=== PATIENT | female | born 1950 | race Caucasian/White ===

== ENCOUNTER 2016-11-10 18:08 | Emergency (ER) | payer MEDICARE, OTHER ==
--- NOTE | 2016-11-10 19:43 | ER Document Report ---
ED Head/Face/Scalp Injury - General Chief Complaint: Head Injury with LOC Stated Complaint: FALL HEAD INJURY Time seen by provider: 18:55 Mode of Arrival: Medic Information source: Patient, Emergency Med Personnel, [facility] Records Notes: This 65-year-old female patient brought emergently by EMS after suffering a fall in her bathroom at home. She states she thinks she fell as she was getting up off the toilet, fell backwards and struck the back of her head on the floor. She thinks she may have been knocked unconscious. At this time she complains of some discomfort to the back of her head. She denies any neck pain. When asked about alcohol consumption, she states she drinks a little, occasionally. Her speech is slurred. There are no motor deficits. TRAVEL OUTSIDE OF THE [place] IN LAST 30 DAYS: No - Related Data Allergies/Adverse Reactions: No Known Allergies Allergy (Verified 08/26/15 10:49) Past Medical History - General Information source: Patient, Emergency Med Personnel, [facility] Records - Social History Smoking Status: Current Every Day Smoker Cigarette use (# per day): Yes Chew tobacco use (# tins/day): No Smoking Education Provided: No Frequency of alcohol use: Occasional Drug Abuse: None Lives with: Spouse/Significant other Family History: Reviewed & Not Pertinent - Past Medical History Cardiac Medical History: Reports: Hx Hypertension - Takes Coreg and lisinopril Denies: Hx Coronary Artery Disease, Hx Heart Attack, Hx Hypercholesterolemia Pulmonary Medical History: Reports: None EENT Medical History: Reports: None Neurological Medical History: Reports: None Endocrine Medical History: Reports: None Renal/ Medical History: Reports: None GI Medical History: Reports: None Musculoskeltal Medical History: Reports Hx Arthritis - GENERALIZED Skin Medical History: Reports None Psychiatric Medical History: Reports: None Infectious Medical History: Reports: None Past Surgical History: Reports: Hx Appendectomy, Hx Hysterectomy, Hx Orthopedic Surgery - foot / hand - Immunizations Hx Diphtheria, Pertussis, Tetanus Vaccination: Yes Review of Systems - Review of Systems Constitutional: No symptoms reported EENT: No symptoms reported Cardiovascular: No symptoms reported Respiratory: No symptoms reported Gastrointestinal: No symptoms reported Genitourinary: No symptoms reported Female Genitourinary: Post menopausal Musculoskeletal: No symptoms reported Skin: No symptoms reported Hematologic/Lymphatic: No symptoms reported Neurological/Psychological: No symptoms reported Physical Exam - Vital signs Vitals: Temp Pulse Resp BP Pulse Ox 97.5 F 72 16 177/102 H 98 11/10/16 19:12 11/10/16 19:12 11/10/16 19:12 11/10/16 19:12 11/10/16 19:12 Interpretation: Hypertensive - General General appearance: Alert In distress: None - HEENT Head: Normocephalic, Tenderness - There is tender soft tissue swelling in the left occipital region. There are no lacerations noted.. No: Atraumatic Eyes: Normal Extraocular movements intact: Yes Pupils: PERRL Nasal: Normal Mouth/Lips: Normal Neck: Normal, Supple - The patient has good range of motion to her neck, there is no pain with neck movement. There is no pain on palpation of the posterior cervical processes or the posterior cervical muscles. - Respiratory Respiratory status: No respiratory distress Breath sounds: Other - There are coarse breath sounds consistent with her smoking history, otherwise unremarkable thoracic exam. - Cardiovascular Rhythm: Regular Heart sounds: Normal auscultation Murmur: No - Abdominal Inspection: Normal Bowel sounds: Normal Tenderness: Nontender - Back Back: Normal, Nontender - Extremities General upper extremity: Normal inspection General lower extremity: Normal inspection - Neurological Neuro grossly intact: Yes - Psychological Associated symptoms: Other - Patient appears to be intoxicated. - Skin Skin Temperature: Warm Skin Moisture: Dry Skin Color: Normal Course - Re-evaluation Re-evalutation: 11/10/16 21:03 The patient's elevated blood pressure may be related to her alcohol intoxication. She does take medication for her blood pressure. 11/10/16 21:08 I reviewed the discharge diagnoses with the patient, she tried to say that her alcohol level was high because of the Flexeril she is taking. She is unable to agree that it is because of alcohol consumption. - Vital Signs Vital signs: Temp Pulse Resp BP Pulse Ox 97.5 F 72 16 177/102 H 98 11/10/16 19:12 11/10/16 19:12 11/10/16 19:12 11/10/16 19:12 11/10/16 19:12 - Laboratory Result Diagrams: 11/10/16 19:44 11/10/16 19:44 Laboratory results interpreted by me: 11/10/16 11/10/16 19:44 19:44 Sodium 121.0 L Chloride 86 L BUN 4 L Creatinine 0.47 L Creatine Kinase 155 H CK-MB (CK-2) 6.77 H - Diagnostic Test Radiology reviewed: Image reviewed, Reports reviewed - Left occipital scalp hematoma. Brain shows mild chronic atrophy and small vessel ischemic disease, no acute intracranial injury. - EKG Interpretation by Me EKG shows normal: Sinus rhythm, Intervals, ST-T Waves. abnormal: [place], QRS Complexes - Old anterior wall [place] Rate: Normal - 76 Rhythm: NSR [place]/QRS: Left axis deviation P Waves: LAE When compared to previous EKG there are: No significant change - Transfer of Care Care transferred to following provider: Dr. Lynn Notes: 11/10/16 21:00 Patient will be ready to discharge when a sober adult comes to take her home, or when she dwain up. Her alcohol level will approach 80 mg% about 11:30 PM this evening. Discharge - Discharge Clinical Impression: Elevated blood pressure reading Contusion of occipital region of scalp Qualifiers: Encounter type: initial encounter Qualified Code(s): S00.03XA - Contusion of scalp, initial encounter Fall Qualifiers: Encounter type: initial encounter Qualified Code(s): W19.XXXA - Unspecified fall, initial encounter Acute alcohol intoxication Qualifiers: Complication of substance-induced condition: with unspecified complication Qualified Code(s): F10.129 - Alcohol abuse with intoxication, unspecified Condition: Stable Disposition: HOME, SELF-CARE Additional Instructions: Acute Alcohol Intoxication: Your evaluation revealed very high levels of alcohol. You can from drinking a large amount of alcohol rapidly! Further, there's the risk of falls , traffic accidents, and fights. A high portion (about 50 percent) of the serious injuries seen in hospital emergency rooms are caused by alcohol. Alcohol overdosage is usually due to an underlying emotional or psychiatric problem. You may benefit from counselling. If "binge" drinking is an ongoing problem for you, or if you drink ANY AMOUNT of alcohol EVERY day, you most likely have a tendency to alcoholism. You should avoid alcohol totally. We can refer you for treatment. Persons with alcohol problems are often also prone to other addictions -- you should discuss any use of medications or drugs with the doctor. You should be watched at home for the next several hours by someone who has not been drinking. Get extra fluids for the next 24 hours. Call the doctor if there is repeated vomiting, increasing headache, decreasing level of alertness, or any other worsening. Contusion: Your injury has resulted in a contusion -- a crushing of the deep tissues. No injury to important structures was detected during the physician's exam. Contusions vary in the amount of pain they cause, and in the length of time required for healing. Typically, the area will become bruised, and will remain painful to touch for two or three weeks. However, most patients are back to working and playing within a few days. After the initial period of rest and cold-packs, your symptoms (together with the doctor's recommendations) will determine how rapidly you can get back to full activity. Usually this means "do what feels okay, but don't do things that hurt." If re-examination was recommended, it's important to follow up as instructed. Call the doctor or return any time if pain increases, if swelling becomes severe, if you develop numbness or weakness in an injured extremity, or if any other alarming symptoms occur. Head Injury Precautions: At this point, there is no evidence that your head injury is serious. Observation is necessary, however. Take only clear liquids for the first few hours, unless told otherwise by the doctor. If no pain medication was prescribed, you may take acetaminophen according to the directions on the bottle. Do not take any medication that may alter your level of alertness (unless you've discussed it with the doctor first) . Limit activity for the first 24 hours. Bed rest is best. During the first 24 hours, check to see approximately every two to three hours that the patient is easily arousable, responds normally, and can perform common tasks such as walking without difficulty. Contact your doctor or go to the hospital if any of the following things occur: Persistent vomiting, difficulty in arousing the patient, worsening or continued headache, or failure to improve as expected. Head injuries can cause symptoms that persist for a few days or even a few weeks. USE ICE-PACKS TO REDUCE THE SWELLING ON THE BACK OF YOUR HEAD. DRINK PLENTY OF FLUIDS TODAY. STOP DRINKING ALCOHOL. BE SURE TO TAKE YOUR BLOOD PRESSURE MEDICATION PRESCRIBED BY YOUR DOCTOR. FOLLOW UP WITH YOUR DOCTOR TOMORROW FOR RECHECK. RETURN TO THE EMERGENCY ROOM IF ANY NEW OR WORSENING SYMPTOMS. Referrals: KULDIP ZACARIAS DO [Primary Care Provider] - Follow up tomorrow
[2016-11-10 19:57] LABS: ABSOLUTE BASOPHILS # (AUTO) 0.1 10^3/uL (0.0-0.2); ABSOLUTE EOSINOPHILS # (AUTO) 0.4 10^3/uL (0.0-0.6); ABSOLUTE LYMPHOCYTES (AUTO) 1.2 10^3/uL (0.5-4.7); ABSOLUTE MONOCYTES (AUTO) 0.7 10^3/uL (0.1-1.4); ABSOLUTE NEUT (AUTO) 3.6 10^3/uL (1.7-8.2); BASOPHILS % (AUTO) 1.4 % (0-2); HEMATOCRIT 42.3 % (36.0-47.0); HEMOGLOBIN 14.2 g/dL (12.0-15.5); HGB HCT DIFFERENCE 0.3; LYMPHOCYTES % (AUTO) 20.8 % (13-45); MEAN CORPUSCULAR HEMOGLOBIN 30.5 pg (27.0-33.4); MEAN CORPUSCULAR HGB CONC 33.6 g/dL (32.0-36.0); MEAN CORPUSCULAR VOLUME 91 fl (80-97); MONOCYTES % (AUTO) 11.2 % (3-13); RED BLOOD COUNT 4.65 10^6/uL (3.72-5.28); RED CELL DISTRIBUTION WIDTH 13.4 % (11.5-14.0); SEGMENTED NEUTROPHILS % (AUTO) 60.6 % (42-78)
[2016-11-10 20:00] LABS: PROTHROMBIN TIME 12.2 SEC (11.4-15.4)
[2016-11-10 20:31] LABS: ALANINE AMINOTRANSFERASE 23 U/L (9-52); ALBUMIN 3.9 g/dL (3.5-5.0); ALCOHOL 174 mg/dL (NONE DETECTED); ALKALINE PHOSPHATASE 106 U/L (38-126); ANION GAP 12 (5-19); ASPARTATE AMINO TRANSFERASE 30 U/L (14-36); BILIRUBIN,TOTAL 0.3 mg/dL (0.2-1.3); BLOOD UREA NITROGEN 4 mg/dL (7-20); CALCIUM 8.8 mg/dL (8.4-10.2); CARBON DIOXIDE 23 mmol/L (22-30); CHLORIDE 86 mmol/L (98-107); CREATINE KINASE 155 U/L (30-135); CREATININE RESULT 0.47 mg/dL (0.52-1.25); GLUCOSE 92 mg/dL (75-110); POTASSIUM 4.4 mmol/L (3.6-5.0); TOTAL PROTEIN 6.5 g/dL (6.3-8.2)
[2016-11-10 20:39] LABS: CREATINE KINASE MB 6.77 ng/mL (<4.55)
[2016-11-10 20:40] LABS: TROPONIN I < 0.012 ng/mL
[2016-11-10 22:07] VITALS: BP 156/81
--- NOTE | 2016-11-11 13:43 | EKG REPORT ---
SEVERITY:- ABNORMAL ECG - SINUS RHYTHM PROBABLE LEFT ATRIAL ABNORMALITY LEFT AXIS DEVIATION LEFT VENTRICULAR HYPERTROPHY ANTERIOR INFARCT, AGE INDETERMINATE : Confirmed by: Hermila Molina MD 11-Nov-2016 13:42:18
== END 2016-11-10 22:10 | disposition home or self-care (01) ==
LOC: ER 18:08
DX: S09.90XA Unspecified injury of head, initial encounter (principal); F10.129 Alcohol abuse with intoxication, unspecified; F17.210 Nicotine dependence, cigarettes, uncomplicated; I10 Essential (primary) hypertension; W18.12XA Fall from or off toilet with subsequent striking against object, initial encounter; Y92.002 Bathroom of unspecified non-institutional (private) residence as the place of occurrence of the external cause; Z90.710 Acquired absence of both cervix and uterus; Z78.0 Asymptomatic menopausal state
CPT/HCPCS: 36415; 70450; 80053; 80307; 82550; 82553; 84484; 85025; 85610; 93005; 93010; 99284

== ENCOUNTER 2016-12-01 16:38 | Emergency (ER) | payer MEDICARE ==
--- NOTE | 2016-12-01 17:24 | ER Document Report ---
ED Medical Screen (RME) - General Stated Complaint: BACK PAIN Time seen by provider: 17:19 Mode of Arrival: Wheelchair Information source: Patient TRAVEL OUTSIDE OF THE [place] IN LAST 30 DAYS: No - HPI Patient complains to provider of: BACK PAIN Onset: Other - CHRONIC, WORSE LAST COUPLE OF WEEKS AFTER FALLING Onset/Duration: Worse Context: RADIATES DOWN BOTH LEGS, WORSE ON LEFT LEG. HX BULGING AND HERNIATED DISCS Quality of pain: Sharp, Stabbing Severity: Moderate Pain Level: 4 Associated Symptoms: None Exacerbated by: Movement, Walking Relieved by: Denies Similar symptoms previously: Yes Recently seen / treated by doctor: No Notes: 12/01/16 17:23 SAID DOCTOR TOLD HER LOW SODIUM CAUSED HER TO FALL IN PAST. PT STATES SHE FEELS FATIGUED SINCE FALLING. - Related Data Smoking: Cigarettes Frequency of alcohol use: Occasional Drug Abuse: None Pertinent History: CHRONIC BACK PAIN - HAD APPT WITH PAIN MGMT THIS AM BUT CAME HERE INSTEAD. HAS HAD SPINAL INJECTIONS IN PAST. LAST INJECTION WAS ABOUT 6 YEARS AGO. HTN Allergies/Adverse Reactions: No Known Allergies Allergy (Verified 12/01/16 17:08) Past Medical History - Past Medical History Cardiac Medical History: Reports: Hx Hypertension - Takes Coreg and lisinopril Denies: Hx Coronary Artery Disease, Hx Heart Attack, Hx Hypercholesterolemia Pulmonary Medical History: Denies: Hx Asthma, Hx Bronchitis, Hx COPD, Hx Pneumonia Neurological Medical History: Denies: Hx Cerebrovascular Accident, Hx Seizures GI Medical History: Denies: Hx Hepatitis, Hx Hiatal Hernia, Hx Ulcer Musculoskeltal Medical History: Reports Hx Arthritis - GENERALIZED Infectious Medical History: Denies: Hx Hepatitis Past Surgical History: Reports: Hx Appendectomy, Hx Genitourinary Surgery, Hx Hysterectomy, Hx Orthopedic Surgery - foot / hand. Denies: Hx Mastectomy, Hx Open Heart Surgery, Hx Pacemaker - Immunizations Hx Diphtheria, Pertussis, Tetanus Vaccination: Yes Physical Exam - Vital signs Vitals: Temp Pulse Resp BP Pulse Ox 98.8 F 91 16 172/91 H 98 12/01/16 16:48 12/01/16 16:48 12/01/16 16:48 12/01/16 16:48 12/01/16 16:48 Course - Vital Signs Vital signs: Temp Pulse Resp BP Pulse Ox 98.8 F 91 16 172/91 H 98 12/01/16 16:48 12/01/16 16:48 12/01/16 16:48 12/01/16 16:48 12/01/16 16:48
[2016-12-01] MEDS ORDERED: OXYCODONE-ACETAMINOPHEN 5-325 MG TABLET PO ONE (17:26)
--- NOTE | 2016-12-01 20:30 | ER Document Report ---
ED General - General Chief Complaint: Low Back Pain Stated Complaint: BACK PAIN Mode of Arrival: Wheelchair Notes: Patient is a 65-year-old female who presents with chronic back pain. States that she used to be on chronic pain management but has not seen her pain management doctor for some time. States that she has had a dull, throbbing, constant pain in her bilateral low back worse in the left and the right last several days. States she's been trying [id number] pain medications without any relief of her symptoms. Nothing worsens the symptoms other than moving. Denies any urinary incontinence or retention, weakness, numbness, difficulty ambulate in, fever, or IV drug use. She has not seen her primary care physician regarding today's concerns. TRAVEL OUTSIDE OF THE [place] IN LAST 30 DAYS: No - Related Data Allergies/Adverse Reactions: No Known Allergies Allergy (Verified 12/01/16 17:08) Past Medical History - General Information source: Patient - Social History Smoking Status: Current Every Day Smoker Chew tobacco use (# tins/day): Yes Frequency of alcohol use: Occasional Drug Abuse: None Lives with: Alone Family History: Reviewed & Not Pertinent Patient has suicidal ideation: No Patient has homicidal ideation: No - Past Medical History Cardiac Medical History: Reports: Hx Hypertension - Takes Coreg and lisinopril Denies: Hx Coronary Artery Disease, Hx Heart Attack, Hx Hypercholesterolemia Pulmonary Medical History: Denies: Hx Asthma, Hx Bronchitis, Hx COPD, Hx Pneumonia Neurological Medical History: Denies: Hx Cerebrovascular Accident, Hx Seizures Renal/ Medical History: Denies: Hx Peritoneal Dialysis GI Medical History: Denies: Hx Hepatitis, Hx Hiatal Hernia, Hx Ulcer Musculoskeltal Medical History: Reports Hx Arthritis - GENERALIZED Infectious Medical History: Denies: Hx Hepatitis Past Surgical History: Reports: Hx Appendectomy, Hx Genitourinary Surgery, Hx Hysterectomy, Hx Orthopedic Surgery - foot / hand. Denies: Hx Mastectomy, Hx Open Heart Surgery, Hx Pacemaker - Immunizations Hx Diphtheria, Pertussis, Tetanus Vaccination: Yes Review of Systems - Review of Systems Notes: Constitutional: Negative for fever. HENT: Negative for sore throat. Eyes: Negative for visual changes. Cardiovascular: Negative for chest pain. Respiratory: Negative for shortness of breath. Gastrointestinal: Negative for abdominal pain, vomiting or diarrhea. Genitourinary: Negative for dysuria. Musculoskeletal: Positive for back pain. Skin: Negative for rash. Neurological: Negative for headaches, weakness or numbness. 10 point ROS negative except as marked above and in HPI. Physical Exam - Vital signs Vitals: Temp Pulse Resp BP Pulse Ox 98.8 F 91 16 172/91 H 98 12/01/16 16:48 12/01/16 16:48 12/01/16 16:48 12/01/16 16:48 12/01/16 16:48 Interpretation: Hypertensive Notes: PHYSICAL EXAMINATION: GENERAL: Well-appearing, well-nourished and in no acute distress. HEAD: Atraumatic, normocephalic. EYES: Pupils equal round and reactive to light, extraocular movements intact, sclera anicteric, conjunctiva are normal. ENT: nares patent, oropharynx clear without exudates. Moist mucous membranes. NECK: Normal range of motion, supple without lymphadenopathy LUNGS: Breath sounds clear to auscultation bilaterally and equal. No wheezes rales or rhonchi. HEART: Regular rate and rhythm without murmurs ABDOMEN: Soft, nontender, normoactive bowel sounds. No guarding, no rebound. No masses appreciated. EXTREMITIES: Normal range of motion, no pitting or edema. No cyanosis. Back: No midline spinal tenderness or step-offs or deformities. Pain on palpation of the bilateral perilumbar spine. NEUROLOGICAL: 5 out of 5 strength both distally and proximally bilateral lower extremities. 2+ patellar reflexes bilaterally. No clonus. Sensation grossly intact in the bilateral lower extremities. Patient is able to ambulate without difficulty. PSYCH: Normal mood, normal affect. SKIN: Warm, Dry, normal turgor, no rashes or lesions noted. Course - Re-evaluation Re-evalutation: 12/01/16 20:29 Presentation of a well appearing patient complaining of acute on chronic back pain. No rapid progression of symptoms, systemic symptoms including fevers, chills, weight loss, history of recent bacterial infection, bilateral symptoms, numbness, weakness, difficulty walking, urinary retention or bowel incontinence , personal history of cancer, immunosuppression, diabetes, known AAA, or history of IV drug use. Exam is without point tenderness over vertebral bodies , pulsatile abdominal mass, and patient has symmetric and intact lower extremity strength, sensation, and reflexes without clonus. 2+ symmetric medial malleolar and dorsalis pedis pulses Based on history and physical, I have a very low suspicion of a concerning etiology of pain including epidural compression syndrome, spinal infection, transverse myelitis, malignancy, abdominal aortic aneurysm, renal colic, acute lower extremity claudication, neurogenic claudication, ankylosing spondylitis, or other intra-abdominal process. Due to absence of concerning risk factors in history and physical as well as absence of rapidly progressive, severe, or bilateral symptoms, will defer imaging at this point. Plan to manage conservatively with outpatient analgesia, analgesia, and physical therapy. - Acetaminophen 650 q 4 + ibuprofen 600 q 6 - Continue normal daily activities as tolerated by pain - Provide with standard musculoskeletal back pain exercise instructions - Instruct to follow up with primary care provider if symptoms not improving - Provide careful return precautions and concerning symptoms to watch for. - Vital Signs Vital signs: Temp Pulse Resp BP Pulse Ox 97.8 F 88 18 164/90 H 98 12/01/16 20:46 12/01/16 20:46 12/01/16 20:46 12/01/16 20:46 12/01/16 20:46 Discharge - Discharge Clinical Impression: Chronic low back pain Qualifiers: Back pain laterality: bilateral Sciatica presence: with sciatica Sciatica laterality: bilateral sciatica Qualified Code(s): M54.42 - Lumbago with sciatica , left side Condition: Good Disposition: HOME, SELF-CARE Additional Instructions: You have been seen in the Emergency Department (ED) today for back pain. Your workup and exam have not shown any acute abnormalities and you are likely suffering from muscle strain or possible problems with your discs, but there is no treatment that will fix your symptoms at this time. Please take the naproxen that has been prescribed as directed. You should also purchase a local lidocaine cream such as "aspercreme with lidocaine" and use per bottle instructions to the affected area. Apply heat to the area as often as you are able. Continue to keep active and avoid prolonged periods of bed rest. Please follow up with your doctor as soon as possible regarding today's ED visit and your back pain. Return to the ED for worsening back pain, fever, weakness or numbness of either leg, or if you develop either (1) an inability to urinate or have bowel movements, or (2) loss of your ability to control your bathroom functions (if you start having "accidents"), or if you develop other new symptoms that concern you.concern you. Prescriptions: Naproxen 500 mg PO BID #60 tablet Referrals: KULDIP ZACARIAS DO [Primary Care Provider] - Follow up as needed
[2016-12-01] MEDS ORDERED: HYDROCODONE/ACETAMINOPHEN 5-325 MG 6 TAB/DSPK PO PRN (20:38)
[2016-12-01 20:48] VITALS: BP 164/90
== END 2016-12-01 20:46 | disposition home or self-care (01) ==
LOC: ER 16:38
DX: G89.29 Other chronic pain (principal); M54.41 Lumbago with sciatica, right side; M54.42 Lumbago with sciatica, left side; I10 Essential (primary) hypertension; F17.200 Nicotine dependence, unspecified, uncomplicated
CPT/HCPCS: 99283; A9270 ×2

== ENCOUNTER 2017-02-20 14:29 | Inpatient (IN) | payer MEDICARE ==
--- NOTE | 2017-02-20 15:07 | ER Document Report ---
ED General - General Chief Complaint: Weakness Stated Complaint: POSSIBLE STROKE Mode of Arrival: Medic Information source: Patient, Emergency Med Personnel Notes: This is a 66-year-old female who presents via EMS for left-sided weakness. Patient states that she was fine earlier today but that just after noon today at about 1210 she sat down to watch TV and noticed that she suddenly could not move her left upper extremity. She also states that left arm was numb. A few minutes later she noticed weakness and numbness to her left leg as well. She remained alert through the episode. Upon EMS arrival, EMS states that she was weak to her left side but she was alert and oriented. She had no facial droop upon their arrival. She had no dysarthria per EMS. During initial EMS evaluation, prior to transport, her symptoms completely resolved. She was transported to ER as stroke alert. She is now back to baseline and she has no complaints. Of note, she did have 2 beers today. She has chronic back pain and was previously in pain management, but now states she does not take narcotics. No prior history of CVA or TIA. TRAVEL OUTSIDE OF THE [place] IN LAST 30 DAYS: No - Related Data Allergies/Adverse Reactions: No Known Allergies Allergy (Verified 12/01/16 17:08) Past Medical History - General Information source: Patient - Social History Smoking Status: Current Every Day Smoker Frequency of alcohol use: Occasional Drug Abuse: None Lives with: Spouse/Significant other Family History: Reviewed & Not Pertinent - Past Medical History Cardiac Medical History: Reports: Hx Hypertension - Takes Coreg and lisinopril Denies: Hx Coronary Artery Disease, Hx Heart Attack, Hx Hypercholesterolemia Pulmonary Medical History: Denies: Hx Asthma, Hx Bronchitis, Hx COPD, Hx Pneumonia Neurological Medical History: Denies: Hx Cerebrovascular Accident, Hx Seizures Renal/ Medical History: Denies: Hx Peritoneal Dialysis GI Medical History: Denies: Hx Hepatitis, Hx Hiatal Hernia, Hx Ulcer Musculoskeltal Medical History: Reports Hx Arthritis - GENERALIZED Infectious Medical History: Denies: Hx Hepatitis Past Surgical History: Reports: Hx Appendectomy, Hx Genitourinary Surgery, Hx Hysterectomy, Hx Orthopedic Surgery - foot / hand. Denies: Hx Mastectomy, Hx Open Heart Surgery, Hx Pacemaker - Immunizations Hx Diphtheria, Pertussis, Tetanus Vaccination: Yes Physical Exam - Vital signs Vitals: Resp Pulse Ox 17 96 02/20/17 14:43 02/20/17 14:43 - Notes Notes: PHYSICAL EXAMINATION: GENERAL: Well-appearing thin elderly female, pleasant and conversant and in no acute distress. Some smell of alcohol HEAD: Atraumatic, normocephalic. EYES: Pupils equal round and reactive to light, extraocular movements intact, sclera anicteric, conjunctiva are normal. ENT: nares patent, oropharynx clear without exudates. Moist mucous membranes. NECK: Normal range of motion, supple without lymphadenopathy LUNGS: Breath sounds clear to auscultation bilaterally and equal. No wheezes rales or rhonchi. HEART: Regular rate and rhythm without murmurs ABDOMEN: Soft, nontender, normoactive bowel sounds. No guarding, no rebound. No masses appreciated. EXTREMITIES: Normal range of motion, no pitting or edema. No cyanosis. NEUROLOGICAL: Cranial nerves grossly intact. No facial asymmetry. Normal speech. Motor strength +5/5. Sensation intact. Negative [id number]. No drift. PSYCH: Normal mood, normal affect. SKIN: Warm, Dry. Dry crusted rash to anterior LLE/foot consistent with eczema ( chronic per patient) Course - Re-evaluation Re-evalutation: 02/20/17 15:35 Patient presented very close to the 3 hour debbie from her last known normal, however her symptoms have significantly improved and almost completely resolved at this time. NIH score - 1 (some drift to LUE). At this time she is not a candidate for thrombolytic therapy. Her head CT is reviewed as negative. She' s been given aspirin. 02/20/17 17:26 Patient reexamined. She states that she has intermittent episodes of worsening weakness in her left upper extremity and then her strength will improve again. At this time she is able to hold her left arm up against gravity but not for the full 10 seconds. Her sensation is intact. I discussed concern for TIA versus CVA and she will be admitted today. She has received aspirin. Discussed with hospitalist who will admit. - Vital Signs Vital signs: Temp Pulse Resp BP Pulse Ox 98.8 F 79 20 183/97 H 97 02/21/17 07:21 02/21/17 07:21 02/21/17 07:21 02/21/17 07:21 02/21/17 07:21 - Laboratory Result Diagrams: 02/20/17 15:33 02/21/17 04:17 Laboratory results interpreted by me: 02/20/17 02/20/17 15:33 15:33 Sodium 126.7 L Chloride 91 L Creatinine 0.47 L Urine Blood MODERATE H hyponatremia is chronic and appears to be at pateint's baseline - Diagnostic Test Radiology reviewed: Reports reviewed - CT head: negative CXR: no acute process - EKG Interpretation by Me Additional EKG results interpreted by me: 02/20/17 17:31 EKG at 1452 demonstrates normal sinus rhythm with a rate of 75. Precordial Q waves are noted. There is no ST segment elevation or depression. No significant change from previous EKG. Discharge - Discharge Clinical Impression: Accelerated hypertension, Alcohol abuse, Chronic hyponatremia CVA (cerebral vascular accident) Qualifiers: CVA mechanism: unspecified Qualified Code(s): I63.9 - Cerebral infarction, unspecified Condition: Stable Disposition: ADMITTED OBSERVATION Admitting Provider: Hospitalist - Dr. Mahoney Unit Admitted: Telemetry
[2017-02-20] MEDS ORDERED: ASPIRIN 81 MG TABLET, CHEWABLE PO ONE (15:08)
[2017-02-20 15:49] LABS: PROTHROMBIN TIME 12.6 SEC (11.4-15.4)
[2017-02-20 15:50] LABS: PARTIAL THROMBOPLASTIN TIME 32.1 SEC (23.5-35.8)
[2017-02-20 15:53] LABS: ABSOLUTE BASOPHILS # (AUTO) 0.1 10^3/uL (0.0-0.2); ABSOLUTE EOSINOPHILS # (AUTO) 0.1 10^3/uL (0.0-0.6); ABSOLUTE LYMPHOCYTES (AUTO) 1.2 10^3/uL (0.5-4.7); ABSOLUTE MONOCYTES (AUTO) 0.8 10^3/uL (0.1-1.4); EOSINOPHILS % (AUTO) 2.3 % (0-6); HEMATOCRIT 37.5 % (36.0-47.0); HGB HCT DIFFERENCE 1.5; LYMPHOCYTES % (AUTO) 18.8 % (13-45); MEAN CORPUSCULAR HEMOGLOBIN 31.6 pg (27.0-33.4); MEAN CORPUSCULAR HGB CONC 34.7 g/dL (32.0-36.0); MEAN CORPUSCULAR VOLUME 91 fl (80-97); MONOCYTES % (AUTO) 12.7 % (3-13); RED BLOOD COUNT 4.12 10^6/uL (3.72-5.28); SEGMENTED NEUTROPHILS % (AUTO) 64.2 % (42-78); WHITE BLOOD COUNT 6.2 10^3/uL (4.0-10.5)
[2017-02-20 16:18] LABS: ALANINE AMINOTRANSFERASE 19 U/L (9-52); ALCOHOL 46 mg/dL (NONE DETECTED); ALKALINE PHOSPHATASE 84 U/L (38-126); ANION GAP 11 (5-19); ASPARTATE AMINO TRANSFERASE 22 U/L (14-36); BILIRUBIN,DIRECT 0.2 mg/dL (0.0-0.4); BILIRUBIN,TOTAL 0.4 mg/dL (0.2-1.3); BLOOD UREA NITROGEN 7 mg/dL (7-20); CALCIUM 9.2 mg/dL (8.4-10.2); CARBON DIOXIDE 25 mmol/L (22-30); CHLORIDE 91 mmol/L (98-107); CREATINE KINASE 124 U/L (30-135); CREATININE RESULT 0.47 mg/dL (0.52-1.25); GLUCOSE 83 mg/dL (75-110); POTASSIUM 4.5 mmol/L (3.6-5.0); SODIUM 126.7 mmol/L (137-145); TOTAL PROTEIN 6.3 g/dL (6.3-8.2)
[2017-02-20 16:38] LABS: APPEARANCE,URINE CLEAR; BILIRUBIN,URINE NEGATIVE (NEGATIVE); CREATINE KINASE MB 3.49 ng/mL (<4.55); GLUCOSE, URINE NEGATIVE (NEGATIVE); KETONES,URINE NEGATIVE (NEGATIVE); LEUKOCYTE ESTERASE,URINE NEGATIVE (NEGATIVE); NITRITE,URINE NEGATIVE (NEGATIVE); PROTEIN,URINE NEGATIVE (NEGATIVE); URINE SPECIFIC GRAVITY 1.004; UROBILINOGEN,URINE NEGATIVE mg/dL (<2.0)
[2017-02-20 16:39] LABS: TROPONIN I < 0.012 ng/mL
[2017-02-20 16:56] LABS: URINE BARBITURATES SCREEN NEGATIVE; URINE METHADONE SCREEN NEGATIVE; URINE OPIATES LOW NEGATIVE; URINE PHENCYCLIDINE SCREEN NEGATIVE
[2017-02-20] MEDS ORDERED: ONDANSETRON HCL INJ/PF 4 MG/2 ML SDV IV PRN (18:26)
[2017-02-20] MEDS ORDERED: NORMAL SALINE 1000 ML 1,000 ML IV PRN (18:26)
[2017-02-20] MEDS ORDERED: ACETAMINOPHEN 325 MG TABLET PO PRN (18:26)
[2017-02-20] MEDS ORDERED: DOCUSATE SODIUM 100 MG CAPSULE PO PRN (18:26)
[2017-02-20] MEDS ORDERED: NORMAL SALINE 1000 ML 1,000 ML with THIAMINE HCL 100 MG, MVI, ADULT NO.1 WITH VIT K 10 ... IV PRN ×4 (18:38)
--- NOTE | 2017-02-20 18:51 | PDOC H&P ---
History of Present Illness Admission Date/PCP: 02/20/17 17:55 JOHN HANNA MD Patient complains of: Left-sided weakness History of Present Illness: GILMA SCHWAB is a 66 year old female, with chronic left lower extremity weakness and left upper extremity weakness that she sustained from an injury from a ladder fall, presents to the hospital with left-sided weakness. Patient has chronic left upper extremity weakness due to prior injury and likewise has chronic back pain from degenerative disc disease with left-sided weakness. Patient drinks alcohol moderately. Patient was doing housework and laundry decided to sleep and rest laying on her left side and when she woke up she felt numb and tingling sensation in the left upper extremity and weakness. Patient tried to move and noted some weakness in the left lower extremity as well. This will last for only about 5-10 seconds and resolve. The ambulance was called and her symptoms resolved she was brought to the emergency room for evaluation reportedly had another episode. Patient admits having symptoms on and off. No dysphagia or choking sensation nor slurring of speech. Initial CT scan was negative. Alcohol level is 46. The patient was then referred for admission for possible stroke. Past Medical History Past Medical History: Medication reconciliation pending verification from the patient's pharmacist. Cardiac Medical History: Reports: Hypertension - Takes Coreg and lisinopril Denies: Coronary Artery Disease, Myocardial Infarction, Hyperlipidema Pulmonary Medical History: Denies: Asthma, Bronchitis, Chronic Obstructive Pulmonary Disease (COPD), Pneumonia Neurological Medical History: Denies: Seizures GI Medical History: Denies: Hepatitis, Hiatal Hernia Musculoskeltal Medical History: Reports: Arthritis - GENERALIZED, Other - Chronic back pain Psychiatric Medical History: Reports: Tobacco Dependency, Other - Alcohol abuse Hematology: Denies: Anemia, Sickle Cell Disease Past Surgical History Past Surgical History: Reports: Appendectomy, Hysterectomy, Orthopedic Surgery - foot / hand, left upper extremity Denies: Amputation, Mastectomy, Pacemaker Social History Information Source: Patient Lives with: Spouse/Significant other Smoking Status: Current Every Day Smoker Cigarettes Packs Per Day: 1 Frequency of Alcohol Use: Heavy - More on the moderate Hx Recreational Drug Use: No Drugs: None Family History Family History: None Parental Family History Reviewed: Yes Children Family History Reviewed: Yes Sibling(s) Family History Reviewed.: Yes Medication/Allergy Home Medications: Calcium Carbonate [Calcium] 4 tab PO DAILY 07/31/16 Duloxetine HCl [Cymbalta] 60 mg PO DAILY 07/31/16 Lisinopril 40 mg PO DAILY 07/31/16 Vitamin D3/Vitamin K2 [D3 + K2 Dots 1,000 Units Tab] 1 tab PO DAILY 07/31/16 Naproxen 500 mg PO BID #60 tablet 12/01/16 Allergies/Adverse Reactions: No Known Allergies Allergy (Verified 12/01/16 17:08) Review of Systems Constitutional: ABSENT: chills, fever(s), headache(s), weight gain, weight loss Eyes: ABSENT: visual disturbances Ears: ABSENT: hearing changes Nose, Mouth, and Throat: ABSENT: mouth pain, sore throat, vertigo Cardiovascular: ABSENT: chest pain, dyspnea on exertion, edema, orthropnea, palpitations Respiratory: ABSENT: cough, dyspnea, hemoptysis Gastrointestinal: ABSENT: abdominal pain, constipation, diarrhea, dysphagia, hematemesis, hematochezia, melena, nausea, vomiting Genitourinary: ABSENT: difficulty urinating, dysuria, hematuria Musculoskeletal: ABSENT: joint swelling Integumentary: ABSENT: rash, wounds Neurological: PRESENT: focal weakness - Chronic over on the the left upper and left lower extremity from prior accident. ABSENT: abnormal gait, abnormal speech, confusion, dizziness, syncope Psychiatric: ABSENT: anxiety, depression, homidical ideation, suicidal ideation Endocrine: ABSENT: cold intolerance, heat intolerance, polydipsia, polyuria Hematologic/Lymphatic: ABSENT: easy bleeding, easy bruising Physical Exam Vital Signs: Temp Pulse Resp BP Pulse Ox 73 14 169/90 H 96 02/20/17 17:32 02/20/17 17:32 02/20/17 17:32 02/20/17 17:32 General appearance: PRESENT: no acute distress, cooperative, thin Head exam: PRESENT: atraumatic, normocephalic Eye exam: PRESENT: conjunctiva pink, EOMI, PERRLA. ABSENT: scleral icterus Ear exam: PRESENT: normal external ear exam. ABSENT: drainage Mouth exam: PRESENT: moist, neck supple, tongue midline Throat exam: ABSENT: post pharyngeal erythema, tonsillar erythema Neck exam: ABSENT: carotid bruit, JVD, lymphadenopathy, thyromegaly Respiratory exam: PRESENT: clear to auscultation mindy. ABSENT: rales, rhonchi, wheezes Cardiovascular exam: PRESENT: RRR, +S1, +S2. ABSENT: diastolic murmur, gallop, rubs, systolic murmur Pulses: PRESENT: normal dorsalis pedis pul Vascular exam: PRESENT: normal capillary refill GI/Abdominal exam: PRESENT: normal bowel sounds, soft. ABSENT: distended, guarding, mass, organolmegaly, rebound, tenderness Rectal exam: PRESENT: deferred Extremities exam: PRESENT: full ROM. ABSENT: calf tenderness, clubbing, pedal edema Neurological exam: PRESENT: alert, awake, oriented to person, oriented to place , oriented to time, oriented to situation, other - Speech is fluent, no facial asymmetry, extraocular muscle movements are intact, tongue is midline, ovula is midline. Manual muscle testing 4 minus over 5 on the left upper and left lower extremity, 4+ over 5 right upper and right lower extremity. Psychiatric exam: PRESENT: appropriate affect, normal mood. ABSENT: homicidal ideation, suicidal ideation Skin exam: PRESENT: dry, intact, warm. ABSENT: cyanosis, rash Results Impressions: Chest X-Ray 02/20/17 14:32 IMPRESSION: NO ACUTE RADIOGRAPHIC FINDING IN THE CHEST. Head CT 02/20/17 14:32 IMPRESSION: CHRONIC CHANGES OF ATROPHY AND MICROVASCULAR ISCHEMIA. NO ACUTE PROCESS. Assessment & Plan - Diagnosis (1) Left-sided weakness Is this a current diagnosis for this admission?: Yes (2) Accelerated hypertension Is this a current diagnosis for this admission?: Yes (3) Alcohol abuse Is this a current diagnosis for this admission?: Yes (4) Chronic hyponatremia Is this a current diagnosis for this admission?: Yes (5) Chronic back pain Qualifiers: Back pain location: back pain in unspecified location Back pain laterality: unspecified Qualified Code(s): M54.9 - Dorsalgia, unspecified ; G89.29 - Other chronic pain Is this a current diagnosis for this admission?: Yes - Time Time Spent: 30 to 50 Minutes - Plan Summary Plan Summary: Patient will be admitted to observation. We will obtain MRI of the brain, carotid Doppler, 2-D echocardiogram. I will put the patient on aspirin. DVT prophylaxis with Lovenox will be placed. Supplemental oxygen will be given and oxygen protocol will be done. As needed hydralazine will be placed for systolic blood pressure greater than or equal to 180. I will give normal saline , supplemental thiamine folic acid and multivitamin. Further testing depends on initial evaluations OUTLINED ABOVE.
[2017-02-20] MEDS ORDERED: NORMAL SALINE 1000 ML 1,000 ML IV ONE (21:47)
[2017-02-20] MEDS: ATORVASTATIN CALCIUM 10 MG TABLET PO SCH (21:56)
--- NOTE | 2017-02-20 22:12 | XCELERA REPORT ---
[address] [address] Transthoracic Echocardiogram Report Name: GILMA SCHWAB Age: 66 yrs Gender: Female : 1950 Patient Status: Inpatient Patient Location: \S\10\S\A Study Date: 02/20/2017 07:35 PM Height: 63 in Weight: 125 lb BSA: 1.6 m2 Procedure: A complete two-dimensional transthoracic echocardiogram was performed (2D, M-mode, spectral and color flow Doppler). The study was technically difficult with many images being suboptimal in quality. Reason For Study: stroke, hypertension Ordering Physician: ASHER LAYTON Performed By: Darian Naidu Interpretation Summary The study was technically difficult with many images being suboptimal in quality. The left ventricular ejection fraction is within normal limits. There is mild concentric left ventricular hypertrophy. Doppler measurements suggest pseudonormalized left ventricular relaxation, which is associated with grade II/IV or mild to moderate diastolic dysfunction The left ventricle is grossly normal size. Wall motion cannot be accurately commented on, but no definite regional wall motion abnormalities noted. The right ventricle is grossly normal size. The right ventricular systolic function is normal. The right atrium is normal in size Borderline left atrial enlargement. There is a trace amount of mitral regurgitation There is no mitral valve stenosis. There is no aortic valve stenosis No aortic regurgitation is present. There is a trace to mild amount of tricuspid regurgitation There is moderate pulmonary hypertension by echo Right ventricular systolic pressure is estimated to be elevated at 30- 40mmHg. Linear echoes noted in the proximal aorta. Can not R/O dissection of the ascending aorta. Clinal correlation requested. The aortic root is not well visualized but is probably normal size. The inferior vena cava appeared normal and decreased > 50% with respiration (RAP 5-10 mmHg) Minimal pericardial effusion. Consider FAMILIA if clinically indicated. Recommend CTA chest MMode/2D Measurements \T\ Calculations RVDd: 1.9 cm LVIDd: 5.0 cm FS: 48.4 % Ao root diam: 3.1 cm IVSd: 1.1 cm LVIDs: 2.6 cm EDV(Teich): 116.5 ml LVPWd: 1.1 cm ESV(Teich): 23.7 ml Ao root area: 7.4 cm2 EF(Teich): 79.6 % LA dimension: 2.5 cm Doppler Measurements \T\ Calculations MV E max abner: MV P1/2t max abner: PA V2 max: TR max abner: 93.3 cm/sec 96.7 cm/sec 74.5 cm/sec 262.1 cm/sec MV A max abner: MV P1/2t: 71.2 msec PA max PG: TR max P.2 cm/sec 2.2 mmHg 27.5 mmHg MV E/A: 0.67 MVA(P1/2t): 3.1 cm2 RVSP(TR): MV dec slope: 37.5 mmHg 397.9 cm/sec2 RAP systole: 10.0 mmHg Left Ventricle The left ventricle is grossly normal size. There is mild concentric left ventricular hypertrophy. The left ventricular ejection fraction is within normal limits. Doppler measurements suggest pseudonormalized left ventricular relaxation, which is associated with grade II/IV or mild to moderate diastolic dysfunction. Wall motion cannot be accurately commented on, but no definite regional wall motion abnormalities noted. Right Ventricle The right ventricle is grossly normal size. There is normal right ventricular wall thickness. The right ventricular systolic function is normal. Atria The right atrium is normal in size. Borderline left atrial enlargement. Interarterial septum not well visualized and not well dopplered. Cannot comment on ASD/PFO presence. Mitral Valve The mitral valve is grossly normal. There is no mitral valve stenosis. There is a trace amount of mitral regurgitation. Aortic Valve The aortic valve is grossly normal. There is no aortic valve stenosis. No aortic regurgitation is present. Tricuspid Valve The tricuspid valve is not well visualized, but is grossly normal. There is no tricuspid stenosis. There is a trace to mild amount of tricuspid regurgitation. There is moderate pulmonary hypertension by echo. Right ventricular systolic pressure is estimated to be elevated at 30-40mmHg. Great Vessels The aortic root is not well visualized but is probably normal size. Linear echoes with the aorta are suggestive of dissection of the ascending aorta. The inferior vena cava appeared normal and decreased > 50% with respiration (RAP 5-10 mmHg). Effusions Minimal pericardial effusion. Incidental Findings Consider FAMILIA if clinically indicated. Recommend CTA chest. : ASHER LAYTON > Nat Ku
[2017-02-20 22:31] LABS: ADD ON TESTING BLD IN LAB ACKNOWLEDGE
[2017-02-20 22:46] LABS: MAGNESIUM 1.6 mg/dL (1.6-2.3)
[2017-02-21 05:08] LABS: ANION GAP 14 (5-19); BLOOD UREA NITROGEN 6 mg/dL (7-20); CALCIUM 9.5 mg/dL (8.4-10.2); CARBON DIOXIDE 22 mmol/L (22-30); CHLORIDE 99 mmol/L (98-107); CHOLESTEROL 179.51 mg/dL (0-200); CREATININE RESULT 0.59 mg/dL (0.52-1.25); Direct HDL 58 mg/dL (>40); GLUCOSE 119 mg/dL (75-110); POTASSIUM 4.2 mmol/L (3.6-5.0); SODIUM 134.6 mmol/L (137-145); TRIGLYCERIDES 99 mg/dL (<150)
[2017-02-21 05:18] LABS: DIRECT LDL 100 mg/dL (<100)
[2017-02-21] MEDS: LANSOPRAZOLE 30 MG TAB.RAP.DR PO SCH (06:28)
[2017-02-21] MEDS: ENOXAPARIN SODIUM INJ 40 MG/0.4 ML DISP.SYRIN SUBCUT SCH (10:26)
[2017-02-21] MEDS: ASPIRIN 325 MG TABLET, ENT COATED PO SCH (10:27)
[2017-02-21] MEDS ORDERED: NICOTINE 21 MG/24 HR PATCH.TD24 TD PRN (12:36)
--- NOTE | 2017-02-21 14:17 | PDOC PROGRESS REPORT ---
Subjective Progress Note for:: 02/21/17 Subjective:: Complaints of some choking sensation since today, no speech difficulty however. No new weakness noted. Weakness still confined to the left upper extremity, more than the left lower extremity. No dizziness or lightheadedness, no blurring of vision. No double vision. Physical Exam Vital Signs: Temp Pulse Resp BP Pulse Ox 98.4 F 80 20 175/92 H 97 02/21/17 12:09 02/21/17 12:09 02/21/17 12:09 02/21/17 12:09 02/21/17 12:09 Intake & Output 02/20/17 02/21/17 02/22/17 06:59 06:59 06:59 Intake Total 822 642 Output Total 300 Balance 822 342 Weight 58.8 kg General appearance: PRESENT: no acute distress, cooperative, other - Speech is fluent Head exam: PRESENT: normocephalic Eye exam: PRESENT: EOMI Mouth exam: PRESENT: moist, neck supple Neck exam: ABSENT: JVD Respiratory exam: PRESENT: clear to auscultation mindy. ABSENT: rhonchi, wheezes Cardiovascular exam: PRESENT: RRR. ABSENT: gallop GI/Abdominal exam: PRESENT: soft. ABSENT: distended, tenderness Extremities exam: ABSENT: pedal edema Neurological exam: PRESENT: alert, awake, oriented to person, oriented to place , oriented to time, oriented to situation Skin exam: PRESENT: dry, warm. ABSENT: cyanosis Results Laboratory Results: 02/21/17 04:17 02/21/17 04:17 Sodium 134.6 L Potassium 4.2 Chloride 99 Carbon Dioxide 22 Anion Gap 14 BUN 6 L Creatinine 0.59 Est GFR ( Amer) > 60 Est GFR (Non-Af Amer) > 60 Glucose 119 H Calcium 9.5 Triglycerides 99 Cholesterol 179.51 LDL Cholesterol Direct 100 VLDL Cholesterol 20.0 HDL Cholesterol 58 Impressions: Chest/Abdomen CTA 02/20/17 00:00 IMPRESSION: NO ANEURYSM OR ACUTE AORTIC INJURY/ DISSECTION. NO PULMONARY EMBOLI. CORONARY ARTERY DISEASE. MODERATE HIATAL HERNIA. Chest X-Ray 02/20/17 14:32 IMPRESSION: NO ACUTE RADIOGRAPHIC FINDING IN THE CHEST. Head CT 02/20/17 14:32 IMPRESSION: CHRONIC CHANGES OF ATROPHY AND MICROVASCULAR ISCHEMIA. NO ACUTE PROCESS. Carotid Doppler Study 02/20/17 18:32 IMPRESSION: NO HEMODYNAMICALLY SIGNIFICANT STENOSIS. Head MRI 02/21/17 08:00 IMPRESSION: Acute, nonhemorrhagic lacunar infarcts in the thalamus. Assessment & Plan - Diagnosis (1) Left-sided weakness Is this a current diagnosis for this admission?: Yes (2) Accelerated hypertension Is this a current diagnosis for this admission?: Yes (3) Alcohol abuse Is this a current diagnosis for this admission?: Yes (4) Chronic hyponatremia Is this a current diagnosis for this admission?: Yes (5) Chronic back pain Qualifiers: Back pain location: back pain in unspecified location Back pain laterality: unspecified Qualified Code(s): M54.9 - Dorsalgia, unspecified ; G89.29 - Other chronic pain Is this a current diagnosis for this admission?: Yes - Time Time Spent with patient: 25-34 minutes - Plan Summary Plan Summary: Patient tolerated some oral intake, staff reports passing the initial swallowing evaluation. I will change her diet to pured with thickened liquids pending speech therapy evaluation. Begin physical therapy. Continue antiplatelets. I have instructed the patient that she will need to stay on the aspirin indefinitely. Continue permissive hypertension at this time. Give is needed hydralazine for systolic blood pressure greater than 180. Continue DVT prophylaxis.
--- NOTE | 2017-02-21 17:04 | EKG REPORT ---
SEVERITY:- ABNORMAL ECG - SINUS RHYTHM PROBABLE LEFT ATRIAL ABNORMALITY LEFT ANTERIOR FASCICULAR BLOCK ANTERIOR INFARCT, OLD : Confirmed by: Hermila Molina MD 21-Feb-2017 17:03:57
[2017-02-21] MEDS: DULOXETINE HCL 30 MG CAPSULE.DR PO SCH (17:13)
[2017-02-21] MEDS: ATORVASTATIN CALCIUM 10 MG TABLET PO SCH (21:26)
[2017-02-21] MEDS: HYDRALAZINE HCL INJ/PF 20 MG/1 ML SDV IV PRN (21:26)
[2017-02-22] MEDS: HYDRALAZINE HCL INJ/PF 20 MG/1 ML SDV IV PRN ×2 (00:48→17:45)
[2017-02-22] MEDS: LANSOPRAZOLE 30 MG TAB.RAP.DR PO SCH (05:38)
[2017-02-22] MEDS: ENOXAPARIN SODIUM INJ 40 MG/0.4 ML DISP.SYRIN SUBCUT SCH (10:09)
[2017-02-22] MEDS: CALCIUM CARBONATE 500 MG TABLET PO SCH ×2 (10:10→17:44)
[2017-02-22] MEDS: ASPIRIN 325 MG TABLET, ENT COATED PO SCH (10:10)
--- NOTE | 2017-02-22 15:41 | PDOC DISCHARGE SUMMARY ---
General - Admit/Disc Date/PCP Admission Date/Primary Care Provider: 02/22/17 09:21 JOHN HANNA MD Discharge Date: 02/22/17 - Discharge Diagnosis (1) Acute ischemic stroke Is this a current diagnosis for this admission?: Yes (2) Accelerated hypertension Is this a current diagnosis for this admission?: Yes (3) Alcohol abuse Is this a current diagnosis for this admission?: Yes (4) Chronic hyponatremia Is this a current diagnosis for this admission?: Yes (5) Chronic back pain Is this a current diagnosis for this admission?: Yes - Additional Information Resuscitation Status: Full Code Discharge Diet: Cardiac - low-fat low-salt Discharge Activity: Activity As Tolerated, Balance Activity w/Rest, Slowly Increase Activity Home Medications: Carvedilol [Coreg 12.5 mg Tablet] 12.5 mg PO BIDACBS 02/21/17 Duloxetine HCl [Cymbalta] 60 mg PO DAILY 02/21/17 Lisinopril [Prinivil] 20 mg PO Q12 02/21/17 Aspirin [Ecotrin 325 mg EC Tablet] 325 mg PO DAILY tabec 02/22/17 Atorvastatin Calcium [Lipitor 10 mg Tablet] 10 mg PO QHS #30 tablet 02/22/17 Additional Information: Stop alcohol. Stopped smoking. Physical therapy outpatient as well as occupational therapy outpatient. History of Present Illness Patient complains of: Left-sided weakness History of Present Illness: GILMA SCHWAB is a 66 year old female, with chronic left lower extremity weakness and left upper extremity weakness that she sustained from an injury from a ladder fall, presents to the hospital with left-sided weakness. Patient has chronic left upper extremity weakness due to prior injury and likewise has chronic back pain from degenerative disc disease with left-sided weakness. Patient drinks alcohol moderately. Patient was doing housework and laundry decided to sleep and rest laying on her left side and when she woke up she felt numb and tingling sensation in the left upper extremity and weakness. Patient tried to move and noted some weakness in the left lower extremity as well. This will last for only about 5-10 seconds and resolve. The ambulance was called and her symptoms resolved she was brought to the emergency room for evaluation reportedly had another episode. Patient admits having symptoms on and off. No dysphagia or choking sensation nor slurring of speech. Initial CT scan was negative. Alcohol level is 46. The patient was then referred for admission for possible stroke. Hospital Course Hospital Course: The patient was admitted to telemetry. Patient was begun on antiplatelet therapy. Antihypertensive medications were held, as needed hydralazine was given for systolic blood pressure greater than 180. In terms of her low sodium she was gently hydrated with saline. Her serum sodium improved. Patient was given supplements with thiamine and folic acid and multivitamin. Carotid Doppler did not reveal any significant stenosis. 2-D echocardiogram showed a normal ejection fraction, as well as no significant valvular defect. MRI of the brain revealed bilateral thalamic stroke. The patient remained stable however. No worsening deficit was noted. Speech therapy evaluation was done and able to tolerate oral intake with some mild modifications. Physical therapy and occupational therapy was performed and recommended outpatient treatment. Her cholesterol and triglyceride levels were normal. She has been placed on Lipitor on admission. The rest of the hospital stays unremarkable. Emphasis on medication compliance was stated as patient reports missing medications. She however reports that she was told to stop her aspirin along time ago. Physical Exam Vital Signs: Temp Pulse Resp BP Pulse Ox 97.9 F 99 18 178/88 H 100 02/22/17 11:42 02/22/17 11:42 02/22/17 11:42 02/22/17 11:42 02/22/17 11:42 Intake & Output 02/21/17 02/22/17 02/23/17 06:59 06:59 06:59 Intake Total 237 Output Total 1000 Balance -763 General appearance: PRESENT: no acute distress, cooperative Head exam: PRESENT: normocephalic Eye exam: PRESENT: EOMI Mouth exam: PRESENT: moist, neck supple Neck exam: ABSENT: JVD Respiratory exam: PRESENT: clear to auscultation mindy Cardiovascular exam: PRESENT: RRR. ABSENT: gallop GI/Abdominal exam: PRESENT: soft. ABSENT: distended, tenderness Extremities exam: ABSENT: pedal edema Neurological exam: PRESENT: alert, awake, oriented to person, oriented to place , oriented to time, oriented to situation Skin exam: PRESENT: dry, warm. ABSENT: cyanosis Results Impressions: Chest/Abdomen CTA 02/20/17 00:00 IMPRESSION: NO ANEURYSM OR ACUTE AORTIC INJURY/ DISSECTION. NO PULMONARY EMBOLI. CORONARY ARTERY DISEASE. MODERATE HIATAL HERNIA. Chest X-Ray 02/20/17 14:32 IMPRESSION: NO ACUTE RADIOGRAPHIC FINDING IN THE CHEST. Head CT 02/20/17 14:32 IMPRESSION: CHRONIC CHANGES OF ATROPHY AND MICROVASCULAR ISCHEMIA. NO ACUTE PROCESS. Carotid Doppler Study 02/20/17 18:32 IMPRESSION: NO HEMODYNAMICALLY SIGNIFICANT STENOSIS. Head MRI 02/21/17 08:00 IMPRESSION: Acute, nonhemorrhagic lacunar infarcts in the thalamus. Qualifiers PATEINT BEING DISCHARGED WITH ANY OF THE FOLLOWING DIAGNOSIS?: Stroke Stroke Pt being discharged on Anti-thrombolytic therapy?: No Reason(s) for not prescribing Anti-thrombolytic therapy:: Not indicated Stroke Pt being discharged on Anti-coagulation therapy?: Yes Stroke Pt being discharged on Statins?: Yes Plan Discharge Plan: Follow-up with primary care physician in 3-5 days. Time Spent: Less than 30 Minutes
[2017-02-22] MEDS ORDERED: CARVEDILOL 12.5 MG TABLET PO SCH (16:00)
[2017-02-22] MEDS: DULOXETINE HCL 30 MG CAPSULE.DR PO SCH (17:44)
[2017-02-22 18:42] VITALS: BP 171/86
== END 2017-02-22 19:57 | disposition home health service (06) | DRG 65 ==
LOC: ER 14:29 → EH 17:55 → UNDOADMIN 17:55 → INTOOBSV 18:27 → EH 18:27 → 3S 22:49 → OBSVTOIN 02-22 09:21
DX: I63.8 Other cerebral infarction (principal); E87.1 Hypo-osmolality and hyponatremia; R20.0 Anesthesia of skin; R53.1 Weakness; I10 Essential (primary) hypertension; M19.90 Unspecified osteoarthritis, unspecified site; M54.9 Dorsalgia, unspecified; F10.10 Alcohol abuse, uncomplicated; Y90.2 Blood alcohol level of 40-59 mg/100 ml; F17.210 Nicotine dependence, cigarettes, uncomplicated
CPT/HCPCS: 36415; 70450; 70551; 71010; 71275; 80048; 80053; 80061; 80307; 81001; 82550; 82553; 83735; 84443; 84484; 85025; 85610; 85730; 93005; 93010; 93306; 93880; 99285; G0378; G8978-GP; G8979-GP; G8987-GO; G8988-GO; G8996-GN; G8997-GN; G8998-GN; J0360; J1650; J3411; J3490; J7030

== ENCOUNTER → 2018-10-05 | Outpatient (CLI) | payer MEDICARE ==
--- NOTE | 2018-10-05 13:47 | WOMENS IMAGING REPORT ---
EXAM DESCRIPTION: BILAT SCREENING MAMMO W/CAD COMPLETED DATE/TIME: 10/05/2018 11:35 am REASON FOR STUDY: SCREENING MAMMO Z12.31 ENCNTR SCREEN MAMMOGRAM FOR MALIGNANT NEOPLASM OF MARCOS COMPARISON: 02/07/2016 TECHNIQUE: Standard craniocaudal and mediolateral oblique views of each breast recorded using digita l acquisition. LIMITATIONS: None. FINDINGS: No masses, calcifications or architectural distortion. No areas of suspicion. Read with the assistance of CAD. .[facility] - R2 Cenova Version 1.3 .[facility] Imaging - R2 Cenova Version 1.3 .[facility] Imaging - R2 Cenova Version 2.4 .[facility] [place] R2 Cenova Version 2.4 .[facility] - R2 [employer] Version 9.2 IMPRESSION: NORMAL MAMMOGRAM. BIRADS 1. BREAST DENSITY: c. The breasts are heterogeneously dense, which may obscure small masses. BIRAD: 1 NEGATIVE RECOMMENDATION: ROUTINE SCREENING Please consider bilateral screening tomosynthesis in September 2019 given heterogeneously dense tissue COMMENT: The patient has been notified of the results by letter per SA requirements. Additional no tification policies are in place for contacting patient with suspicious or incomplete findings. Quality ID #225: The [employer] recommends an annual screening mammogram for women aged 40 years or over. This facility utilizes a reminder system to ensure that all patients receive reminder letters, and/or direct phone calls for appointments. This includes reminders for routine scr eening mammograms, diagnostic mammograms, or other Breast Imaging Interventions when appropriate. Th is patient will be placed in the appropriate reminder system. The [employer] (ACR) has developed recommendations for screening MRI of the breast s in certain patient populations, to be used in conjunction with mammography. Breast MRI surveillanc e may be appropriate for women with more than 20% lifetime risk of developing breast cancer as deter mined by genetic testing, significant family history of the disease, or history of mantle radiation f or Hodgkins Disease. ACR Practice Guidelines 2008. TECHNICAL DOCUMENTATION: FINDING NUMBER: (1) ASSESSMENT: (1) JOB ID: [id number] [employer]- All Rights Reserved Reading location - IP/workstation name: [email or web address]-[email or web address]
== END ==
LOC: WI 10:39
PROVIDERS: ATTEND Family Medicine
DX: Z12.31 Encounter for screening mammogram for malignant neoplasm of breast (principal)
CPT/HCPCS: 77067

== ENCOUNTER → 2018-11-25 | Outpatient (CLI) | payer MEDICARE ==
--- NOTE | 2018-11-25 13:57 | WOMENS IMAGING REPORT ---
EXAM DESCRIPTION: BONE DENSITY HIP/SPINE COMPLETED DATE/TIME: 11/25/2018 1:16 pm REASON FOR STUDY: AGE RELATED OSTEOPOROSIS WITHOUT CURRENT PATHOLOGICAL FRACTURE,M81.0 M43.17 SPOND YLOLISTHESIS, LUMBOSACRAL REGION M54.16 RADICULOPATHY, LUMBAR REGION M81.0 AGE-RELATED OSTEOPOROSIS W/O CURRENT PATHOLOGICAL FRAC COMPARISON: 2016 TECHNIQUE: Dual-Energy X-ray Absorptiometry (DEXA) of the Hip, and Forearm. LIMITATIONS: None. FINDINGS: HIP: The bone mineral density (BMD) measured in the left femoral neck at the hip correlates with a T-score of -2.8, which is osteoporotic as defined by the World Health Organization. This represents a 7% de crease in bone density since 2016 FOREARM: The bone mineral density (BMD) measured in the right distal forearm correlates with a T-score of -4.6 which is osteoporotic as defined by the World Health Organization. IMPRESSION: HIP: Osteoporotic FOREARM: Osteoporotic COMMENT: The World Health Organization defines low BMD as follows: T-score: Normal: Greater than -1.0 Osteopenia: Between -1.0 and -2.5 Osteoporosis: Less than -2.5 without fractures Established osteoporosis: Less than -2.5 with fractures In general, you may wish to consider: Diagnosis Treatment Follow-up DEXA Normal BMD Prevention 2-3 years Osteopenia Prevention/Therapy 1-2 years Osteoporosis Therapy Yearly TECHNICAL DOCUMENTATION: JOB ID: [id number]- All Rights Reserved Reading location - IP/workstation name: [email or web address]
== END ==
LOC: WI 12:56
PROVIDERS: ATTEND Neurological Surgery
DX: M81.0 Age-related osteoporosis without current pathological fracture (principal)
CPT/HCPCS: 77080

== ENCOUNTER → 2019-01-23 | Outpatient (CLI) | payer MEDICARE ==
--- NOTE | 2019-01-23 13:35 | RADIOLOGY REPORT (SQ) ---
EXAM DESCRIPTION: CT LUMBAR SPINE WITHOUT COMPLETED DATE/TIME: 01/23/2019 10:11 am REASON FOR STUDY: M43.16 SPONDYLOLISTHESIS, LUMBAR REGION M43.16 SPONDYLOLISTHESIS, LUMBAR REGION R 29.2 ABNORMAL REFLEX COMPARISON: None. TECHNIQUE: Axial images acquired through the lumbar spine without intravenous contrast. Images revi ewed with lung, soft tissue and bone windows. Reconstructed coronal and sagittal MPR images reviewed . All images stored on PACS. All CT scanners at this facility use dose modulation, iterative reconstruction, and/or weight based d osing when appropriate to reduce radiation dose to as low as reasonably achievable (ALARA). [facility]: Dose Right [facility]: CareDose [facility]: Dose Right [facility]: Teradose 4D [facility]: Smart Technologies RADIATION DOSE: CT Rad equipment meets quality standard of care and radiation dose reduction techniq ues were employed. CTDIvol: 10.7 mGy. DLP: 284 mGy-cm. mGy. LIMITATIONS: None. FINDINGS: SEGMENTATION: Normal. No transitional anatomy. ALIGNMENT: Grade 2-3 anterolisthesis of L5 on S1. VERTEBRAL BODIES: No fractures. No dislocation. No acute findings. DISCS: There is narrowing of the L4-5 and L5-S1 disc spaces. Circumferential disc bulge at L2-3 with no central canal or foraminal stenosis. Concentric disc bulge at L3-4 with no central canal or fora jose stenosis. Unroofing of the L5-S1 disc. PEDICLES, TRANSVERSE PROCESSES: No fractures. No dislocation. No acute findings. FACETS, POSTERIOR ELEMENTS: There is a pars defect on the right at L5. Left-sided laminectomy change s at L4 and L5. HARDWARE: None in the spine. VISUALIZED RIBS: No fractures. SOFT TISSUES: No significant or acute finding in adjacent soft tissues. OTHER: No other significant finding. IMPRESSION: Grade 2-3 anterolisthesis of L5 on S1. Surgical changes. Disc bulging as described. TECHNICAL DOCUMENTATION: JOB ID: [id number] Quality ID # [id number]: Final reports with documentation of one or more dose reduction techniques (e.g., Au tomated exposure control, adjustment of the mA and/or kV according to patient size, use of iterative reconstruction technique) 2010 [employer]- All Rights Reserved Reading location - IP/workstation name: [email or web address]
--- NOTE | 2019-01-23 13:55 | RADIOLOGY REPORT (SQ) ---
EXAM DESCRIPTION: MRI CERVICAL SPINE WITHOUT COMPLETED DATE/TIME: 01/23/2019 10:43 am REASON FOR STUDY: R29.2 ABNORMAL REFLEX M43.16 SPONDYLOLISTHESIS, LUMBAR REGION R29.2 ABNORMAL REF DEEPIKA COMPARISON: None. TECHNIQUE: Sagittal and Axial imaging includes T1, T2, STIR and gradient echo sequences. LIMITATIONS: None. FINDINGS: ALIGNMENT: Minimal anterolisthesis of C4 on C5. VERTEBRAE: Intact. There is a Schmorl's node in the inferior endplate of C5. BONE MARROW: Normal. No marrow replacement or reactive changes. DISCS: Disc spaces are narrowed from C4 to C7, most prominently at C5-6. Decreased signal intensity. HARDWARE: None in the spine. CORD AND BASE OF BRAIN: Normal in size and signal intensity. SOFT TISSUES: No soft tissue masses. C1-C2: No significant spinal stenosis. C2-C3: No significant spinal stenosis or exit foraminal stenosis. C3-C4: Hypertrophic facet changes on the left. No central canal or foraminal stenosis. C4-C5: Hypertrophic facet changes on the right. No central canal or foraminal stenosis. C5-C6: No significant spinal stenosis or exit foraminal stenosis. C6-C7: No significant spinal stenosis or exit foraminal stenosis. C7-T1: No significant spinal stenosis or exit foraminal stenosis. UPPER THORACIC: Incompletely imaged. No significant spinal stenosis or exit foraminal stenosis. OTHER: No other significant finding. IMPRESSION: Minimal anterolisthesis of C4 on C5. Facet arthropathy as described. No significant ce ntral canal or foraminal stenoses. TECHNICAL DOCUMENTATION: JOB ID: [id number] [employer]- All Rights Reserved Reading location - IP/workstation name: [email or web address]
--- NOTE | 2019-01-23 13:58 | RADIOLOGY REPORT (SQ) ---
EXAM DESCRIPTION: L SPINE 2 VIEWS COMPLETED DATE/TIME: 01/23/2019 11:03 am REASON FOR STUDY: M43.16 SPONDYLOLISTHESIS, LUMBAR REGION M43.16 SPONDYLOLISTHESIS, LUMBAR REGION R 29.2 ABNORMAL REFLEX COMPARISON: None. NUMBER OF VIEWS: Two views. TECHNIQUE: AP and lateral radiographic images acquired of the lumbar spine. LIMITATIONS: None. FINDINGS: MINERALIZATION: Normal. SEGMENTATION: Normal. No transitional anatomy. ALIGNMENT: Levoscoliosis. Grade 2-3 anterolisthesis of L5 on S1. VERTEBRAE: Maintained height. No fracture or worrisome bone lesion. DISCS: Disc spaces are narrowed at health 3 4 and L4-5 and L5-S1. POSTERIOR ELEMENTS: Laminectomy changes on the left at L4. HARDWARE: None in the spine. PARASPINAL SOFT TISSUES: Normal. PELVIS: Intact as visualized. No fractures or worrisome bone lesions. SI joints intact. OTHER: No other significant finding. IMPRESSION: Scoliosis. Significant anterolisthesis of L5 on S1. Degenerative disc disease. TECHNICAL DOCUMENTATION: JOB ID: [id number]- All Rights Reserved Reading location - IP/workstation name: [email or web address]
--- NOTE | 2019-01-23 13:59 | RADIOLOGY REPORT (SQ) ---
EXAM DESCRIPTION: PELVIS AP COMPLETED DATE/TIME: 01/23/2019 11:03 am REASON FOR STUDY: SPONDYLOLISTHESIS OF LUMBAR REGION M43.16 SPONDYLOLISTHESIS, LUMBAR REGION R29.2 ABNORMAL REFLEX COMPARISON: None. NUMBER OF VIEWS: One view TECHNIQUE: AP Pelvis LIMITATIONS: None. FINDINGS: MINERALIZATION: Normal. HIPS: No acute fracture or dislocation. No worrisome bone lesions. PELVIS AND SACRUM: No acute fracture or dislocation. No worrisome bone lesions. PUBIS AND ISCHIUM: No acute fracture. LOWER LUMBAR SPINE: See separate report. SOFT TISSUES: No findings. OTHER: No other significant finding. IMPRESSION: NEGATIVE STUDY OF THE PELVIS. COMMENT: Pelvic fractures are often occult on plain radiographs. If strong clinical suspicion for f racture, recommend CT or MR. TECHNICAL DOCUMENTATION: JOB ID: [id number] [employer]- All Rights Reserved Reading location - IP/workstation name: [email or web address]
== END ==
LOC: RAD 09:55
PROVIDERS: ATTEND Physician Assistant
DX: M43.16 Spondylolisthesis, lumbar region (principal); R29.2 Abnormal reflex
CPT/HCPCS: 72100; 72131; 72141; 72170

== ENCOUNTER → 2019-07-26 | Outpatient (CLI) | payer MEDICARE ==
--- NOTE | 2019-07-26 14:45 | RADIOLOGY REPORT (SQ) ---
EXAM DESCRIPTION: CT ABD/PELVIS WITH IV ORAL COMPLETED DATE/TIME: 07/26/2019 1:10 pm REASON FOR STUDY: K43.2 INCISIONAL HERNIA WITHOUT OBSTRUCTION OR GANGRENE K43.2 INCISIONAL HERNIA W ITHOUT OBSTRUCTION OR GANGRENE COMPARISON: 01/23/2019 TECHNIQUE: CT scan of the abdomen and pelvis performed using helical scanning technique with dynamic intravenous contrast injection. Patient was given oral contrast. Images reviewed with lung, soft ti ssue, and bone windows. Reconstructed coronal and sagittal MPR images reviewed. Delayed images for ev aluation of the urinary system also acquired. All images stored on PACS. All CT scanners at this facility use dose modulation, iterative reconstruction, and/or weight based d osing when appropriate to reduce radiation dose to as low as reasonably achievable (ALARA). [facility]: Dose Right [facility]: CareDose [facility]: Dose Right [facility]: Teradose 4D [facility]: Vigiglobe CONTRAST TYPE AND DOSE: contrast/concentration: Isovue 350.00 mg/ml; Total Contrast Delivered: 72.0 ml; Total Saline Delivered: 66.0 ml RENAL FUNCTION: Creatinine 0.4 RADIATION DOSE: CT Rad equipment meets quality standard of care and radiation dose reduction techniq ues were employed. CTDIvol: 5.0 - 5.9 mGy. DLP: 507 mGy-cm.. LIMITATIONS: None. FINDINGS: LOWER CHEST: Coronary atherosclerosis. Moderate hiatal hernia. LIVER: Normal size. No masses. No dilated ducts. SPLEEN: Normal size. No focal lesions. PANCREAS: No masses. No significant calcifications. No adjacent inflammation or peripancreatic fluid collections. Pancreatic duct not dilated. GALLBLADDER: Decompressed. No radiopaque stones. No pericholecystic inflammation. ADRENAL GLANDS: No significant masses or asymmetry. RIGHT KIDNEY AND URETER: No solid masses. No significant calcifications. No hydronephrosis or hyd roureter. LEFT KIDNEY AND URETER: No solid masses. No significant calcifications. No hydronephrosis or hydr oureter. AORTA AND VESSELS: Aortoiliac atherosclerosis without aneurysm. Celiac, SMA and ARTIE are opacified. Dense atherosclerosis at the bilateral renal ostia. RETROPERITONEUM: No retroperitoneal adenopathy, hemorrhage or masses. BOWEL AND PERITONEAL CAVITY: No evidence of intestinal obstruction. No focal bowel wall thickening. There is a 3.3 by 3.1 cm collection within the right anterior pelvis (series 2, image 55). No evide nce of free intraperitoneal gas. APPENDIX: Surgically absent. PELVIS: Unremarkable urinary bladder. No free pelvic fluid. Right pelvic collection as above. ABDOMINAL WALL: Subcutaneous stranding within the right lower abdominal wall tissues anteriorly. No discrete mass. BONES: No acute bony abnormality. Stable grade 2/3 anterolisthesis of L5 on S1. Posterior fusion dodge rdware spanning from L3-S1. No evidence of acute bony abnormality. No suspicious osseous lesions. OTHER: No other significant finding. IMPRESSION: 1. 3.3 x 3.1 cm collection within the right anterior pelvis. Findings may represent po stsurgical hematoma/ seroma although abscess is not excluded. 2. Status post L3- S1 fusion with stable grade 2/3 anterolisthesis of L5 on S1. 3. Moderate hiatal hernia. 4. Additional chronic findings as above. TECHNICAL DOCUMENTATION: JOB ID: [id number] Quality ID # [id number]: Final reports with documentation of one or more dose reduction techniques (e.g., Au tomated exposure control, adjustment of the mA and/or kV according to patient size, use of iterative reconstruction technique) 2010 [employer]- All Rights Reserved Reading location - IP/workstation name: [email or web address]
== END ==
LOC: RAD 12:29
PROVIDERS: ATTEND Surgery
DX: K43.2 Incisional hernia without obstruction or gangrene (principal); K44.9 Diaphragmatic hernia without obstruction or gangrene
CPT/HCPCS: 74177; 82565

== ENCOUNTER → 2019-08-04 | Outpatient (CLI) | payer MEDICARE ==
--- NOTE | 2019-08-04 11:07 | RADIOLOGY REPORT (SQ) ---
EXAM DESCRIPTION: LUMBAR SPINE 2 VIEWS COMPLETED DATE/TIME: 08/04/2019 10:49 am REASON FOR STUDY: OTHER SPONDYLOSIS WITH RADICULOPATHY, LUMBAR REGION M47.26 OTHER SPONDYLOSIS WITH RADICULOPATHY, LUMBAR REGION COMPARISON: 01/23/2019 NUMBER OF VIEWS: Two views. TECHNIQUE: AP and lateral radiographic images acquired of the lumbar spine. LIMITATIONS: None. FINDINGS: MINERALIZATION: Decreased. SEGMENTATION: Normal. No transitional anatomy. ALIGNMENT: Levoconvex lumbar curvature. Grade 3 anterolisthesis of L5 on S1, stable. VERTEBRAE: No definite fracture. Interval posterior fusion hardware spanning from L3-S1 with associa hannah interbody spacers. DISCS: Interbody spacers at L3-4, L4-5 and L5-S1. Remaining disc spaces are unremarkable. Endplate degenerative change and osteophytosis pre POSTERIOR ELEMENTS: Postsurgical changes from fusion. No fracture. HARDWARE: L3-S1 posterior fusion hardware with associated interbody spacers. PARASPINAL SOFT TISSUES: Extensive aortic atherosclerosis. PELVIS: Intact as visualized. No fractures or worrisome bone lesions. SI joints intact. OTHER: No other significant finding. IMPRESSION: 1. Postsurgical changes from the L3-S1 posterior fusion without evidence of complicatio n. 2. Persistent grade 3 anterolisthesis of L5 on S1, stable. 3. Multilevel additional degenerative change without evidence of acute bony abnormality. TECHNICAL DOCUMENTATION: JOB ID: [id number] [employer]- All Rights Reserved Reading location - IP/workstation name: [email or web address]
== END ==
LOC: OD 10:22
PROVIDERS: ATTEND Neurological Surgery
DX: M47.26 Other spondylosis with radiculopathy, lumbar region (principal); Z98.1 Arthrodesis status
CPT/HCPCS: 72100

== ENCOUNTER → 2019-10-09 | Outpatient (CLI) | payer MEDICARE ==
--- NOTE | 2019-10-09 09:50 | WOMENS IMAGING REPORT ---
EXAM DESCRIPTION: BILAT SCREENING MAMMO W/CAD COMPLETED DATE/TIME: 10/09/2019 8:41 am REASON FOR STUDY: Z12.31 SCREENING MAMMO Z12.31 ENCNTR SCREEN MAMMOGRAM FOR MALIGNANT NEOPLASM OF B RE COMPARISON: 2015, 2017 EXAM PARAMETERS: Standard craniocaudal and mediolateral oblique views of each breast recorded using digital acquisition. Read with the assistance of CAD. .[facility] - [employer] Version 9.2 LIMITATIONS: None. FINDINGS: No suspicious masses, suspicious calcifications or architectural distortion. No areas of c oncern. IMPRESSION: Negative MAMMOGRAM. BIRADS 1 BREAST DENSITY: b. There are scattered areas of fibroglandular density. BIRAD: ASSESSMENT: 1 NEGATIVE RECOMMENDATION: ROUTINE SCREENING COMMENT: The patient has been notified of the results by letter per SA requirements. Additional no tification policies are in place for contacting patient with suspicious or incomplete findings. Quality ID #225: The [employer] recommends an annual screening mammogram for women aged 40 years or over. This facility utilizes a reminder system to ensure that all patients receive reminder letters, and/or direct phone calls for appointments. This includes reminders for routine scr eening mammograms, diagnostic mammograms, or other Breast Imaging Interventions when appropriate. Th is patient will be placed in the appropriate reminder system. TECHNICAL DOCUMENTATION: FINDING NUMBER: (1) ASSESSMENT: (1) JOB ID: [id number] [employer]- All Rights Reserved Reading location - IP/workstation name: [email or web address]
== END ==
LOC: WI 08:00
PROVIDERS: ATTEND Family Medicine
DX: Z12.31 Encounter for screening mammogram for malignant neoplasm of breast (principal)
CPT/HCPCS: 77067

== ENCOUNTER → 2019-11-09 | Outpatient (CLI) | payer MEDICARE ==
--- NOTE | 2019-11-09 15:50 | RADIOLOGY REPORT (SQ) ---
EXAM DESCRIPTION: L SPINE FLEX/EXT ONLY COMPLETED DATE/TIME: 11/09/2019 2:52 pm REASON FOR STUDY: SPONDYLOLISTHESIS, LUMBAR REGION M43.16 SPONDYLOLISTHESIS, LUMBAR REGION COMPARISON: 08/04/2019 TECHNIQUE: Lateral flexion and extension radiographs of the spine. NUMBER OF VIEWS: Two views. LIMITATIONS: None. FINDINGS: Intact instrumentation status post posterior fusion and disc prosthesis L3-4, L4- 5, L5-S1 . No instability with flexion and extension. OTHER: No other significant finding. IMPRESSION: NO RADIOGRAPHIC EVIDENCE OF ABNORMAL MOTION. TECHNICAL DOCUMENTATION: JOB ID: [id number] [employer]- All Rights Reserved Reading location - IP/workstation name: [email or web address]
== END ==
LOC: OD 13:58
PROVIDERS: ATTEND Nurse Practitioner Family
DX: M43.16 Spondylolisthesis, lumbar region (principal)
CPT/HCPCS: 72120

== ENCOUNTER → 2020-04-11 | Outpatient (CLI) | payer MEDICARE ==
--- NOTE | 2020-04-11 15:47 | RADIOLOGY REPORT (SQ) ---
EXAM DESCRIPTION: LUMBAR SPINE 2 VIEWS IMAGES COMPLETED DATE/TIME: 04/11/2020 2:17 pm REASON FOR STUDY: S/P LUMBAR FUSION Z98.1 ARTHRODESIS STATUS COMPARISON: 11/09/2019 NUMBER OF VIEWS: Two views. TECHNIQUE: AP and lateral radiographic images acquired of the lumbar spine. LIMITATIONS: None. FINDINGS: Unchanged convex left scoliosis and grade 2 spondylolisthesis L5-S1 status post posterior fusion and decompression L3 through S1. Instrumentation appears intact. IMPRESSION: Stable chronic and postoperative changes. TECHNICAL DOCUMENTATION: JOB ID: [id number] 2010 [employer]- All Rights Reserved Reading location - IP/workstation name: [email or web address]
== END ==
LOC: OD 13:33
PROVIDERS: ATTEND Neurological Surgery
DX: Z98.1 Arthrodesis status (principal)
CPT/HCPCS: 72100

== ENCOUNTER → 2020-05-02 | Outpatient (CLI) | payer MEDICARE ==
--- NOTE | 2020-05-02 13:36 | RADIOLOGY REPORT (SQ) ---
EXAM DESCRIPTION: MRI CERVICAL SPINE WITHOUT IMAGES COMPLETED DATE/TIME: 05/02/2020 8:57 am REASON FOR STUDY: R29.2 ABNORMAL REFLEX R29.2 ABNORMAL REFLEX COMPARISON: 01/23/2019 TECHNIQUE: Sagittal and Axial imaging includes T1, T2, STIR and gradient echo sequences. LIMITATIONS: None. FINDINGS: ALIGNMENT: Mild anterolisthesis of C4 on C5. VERTEBRAE: Intact. BONE MARROW: Normal. No marrow replacement or reactive changes. DISCS: Normal. No significant abnormal signal or loss of height. HARDWARE: None in the spine. CORD AND BASE OF BRAIN: Normal in size and signal intensity. SOFT TISSUES: No soft tissue masses. C1-C2: No significant spinal stenosis. C2-C3: Shallow broad-based disc/ osteophyte complex with no central canal or foraminal stenosis. C3-C4: Shallow broad-based disc/ osteophyte complex with no central canal stenosis. Mild left forami nal stenosis. C4-C5: Broad-based disc/osteophyte complex with no central canal stenosis and mild right foraminal st enosis. C5-C6: Slightly asymmetrical disc/osteophyte complex results in mild left foraminal stenosis. No lulu tral canal stenosis. C6-C7: Asymmetrical disc/ osteophyte complex results in left foraminal stenosis. No central canal st enosis. C7-T1: No significant spinal stenosis or exit foraminal stenosis. UPPER THORACIC: Incompletely imaged. No significant spinal stenosis or exit foraminal stenosis. OTHER: No other significant finding. IMPRESSION: Disc changes at multiple levels as described. Mild left foraminal stenoses are seen at C3-4 and C5-6. More significant left foraminal stenosis is present at C6-7. Mild right foraminal st enosis is present at C4-5. Mild anterolisthesis of C4 on C5. TECHNICAL DOCUMENTATION: JOB ID: [id number] 2010 [employer]- All Rights Reserved Reading location - IP/workstation name: [email or web address]
== END ==
LOC: RAD 08:10
PROVIDERS: ATTEND Physician Assistant
DX: M25.78 Osteophyte, vertebrae (principal); M48.02 Spinal stenosis, cervical region; R29.2 Abnormal reflex
CPT/HCPCS: 72141